=== PATIENT | male | born 1990 | race African-American/Black ===

== ENCOUNTER 2020-02-04 20:27 | Emergency (ER) | payer SELFPAY ==
[~2020-02-04] VITALS: Ht 182.9 cm; Wt 79.0 kg
[2020-02-04] MEDS ORDERED: AZITHROMYCIN 500 MG TABLET PO ONE (20:45)
[2020-02-04] MEDS ORDERED: CEFTRIAXONE SODIUM 250 MG/VIAL IM ONE (20:45)
[2020-02-04] MEDS ORDERED: IBUPROFEN 600MG TABLET PO ONE (20:45)
[2020-02-04 21:16] LABS: CLARITY URINE CLEAR (CLEAR); COLOR URINE YELLOW (YELLOW); KETONES URINE NEGATIVE (NEGATIVE); LEUKOCYTE ESTERASE URINE TRACE (NEGATIVE); NITRITE URINE NEGATIVE (NEGATIVE); OCCULT BLOOD URINE NEGATIVE (NEGATIVE); PH URINE 6.5 (4.5-8.0); PROTEIN URINE NEGATIVE (NEGATIVE); SPECIFIC GRAVITY URINE 1.009 (1.005-1.030)
[2020-02-04 21:50] VITALS: BP 127/65
== END 2020-02-04 21:52 | disposition home or self-care (01) ==
LOC: ER 20:27
DX: A64 Unspecified sexually transmitted disease (principal); F17.200 Nicotine dependence, unspecified, uncomplicated; F12.10 Cannabis abuse, uncomplicated; Z98.890 Other specified postprocedural states
CPT/HCPCS: 81003; 87086; 87491; 87591; 96372; 99283; J0696